=== PATIENT | male | born 1965 | race Caucasian/White ===

== ENCOUNTER → 2017-02-22 | Outpatient (CLI) | payer BC ==
[2016-05-29 14:14] VITALS: BP 132/80
[~2017-02-22] MED LIST: ASPI-482 PO; ATOR20TA58 PO; CHOL10003 PO; DIGO250T92 PO; DOCU50CA9 PO; LISI-334 PO; LISI10TA2 PO; NIAC10002 PO; NIAC500T PO; OMEG1CAP6 PO; OXYC-323 PO; WARF10TA6 PO; WARF3TAB54 PO; WARF6TAB PO
--- NOTE | 2017-02-22 15:48 | RAD ---
Indication follow-up examination. Grayscale color Doppler and spectral imaging was performed. Examination was targeted to the veins of the lower extremities. Note is made of a previous examination 05/28/2016 demonstrating findings most compatible with nonocclusive chronic appearing DVT throughout the right femoral vein. On the left common femoral, femoral and popliteal veins demonstrate normal flow compressibility and augmentation. No thrombus is seen. The visualized calf veins on the left appeared normal. On the right there are again seen findings compatible with chronic thrombus in the common femoral vein and in the distal aspect of the femoral vein and popliteal vein the knee. No new thrombus is seen. 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 No new thrombus on the right seen
== END | disposition home or self-care (01) ==
LOC: US 14:33
PROVIDERS: ATTEND Internal Medicine Critical Care Medicine
DX: I82.511 Chronic embolism and thrombosis of right femoral vein (principal); I82.531 Chronic embolism and thrombosis of right popliteal vein
CPT/HCPCS: 93970

== ENCOUNTER → 2017-04-02 | Outpatient (CLI) | payer BC ==
[2016-05-29 14:14] VITALS: BP 132/80
--- NOTE | 2017-04-02 15:05 | CARD ---
APPROVED REPORT EXAM: Two-dimensional and M-mode echocardiogram with Doppler and color Doppler. Other Information Quality : Average Rhythm : APC's INDICATION Cardiomyopathy 2D DIMENSIONS RVDd3.3 (2.9-3.5cm)Left Atrium(2D)4.0 (1.6-4.0cm) IVSd1.3 (0.7-1.1cm)Aortic Root(2D)3.2 (2.0-3.7cm) LVDd5.4 (3.9-5.9cm)LVOT Diameter2.6 (1.8-2.4cm) PWd1.3 (0.7-1.1cm)LVDs4.1 (2.5-4.0cm) FS (%) 24.0 %SV66.2 ml LVEF(%)47.3 (>50%) Aortic Valve AoV Peak Daniel.132.5cm/sAoV VTI31.4cm AO Peak GR.7.0mmHgLVOT Peak Daniel.92.7cm/s LVOT VTI 20.32cmAO Mean GR.4mmHg ENRIQUETA (VMAX)3.12mh0ASQ (VTI)3.49cm2 Mitral Valve MV E Hhpwpvpw77.6cm/sMV DECEL DQTE656cx MV A Anablfxz32.8cm/sE/A Ratio0.8 MV A Wydhahok511zm Tricuspid Valve TR P. Bvosjwoh930di/sRAP WJOQZFRT2nmFl TR Peak Gr.26qpRkILIN86qrQg LEFT VENTRICLE The left ventricle is normal size. There is borderline to mild concentric left ventricular hypertroph y. Left ventricle systolic function is mildly impaired. The Ejection Fraction is 40-45%. Severe hypok inesis in the basal to mid inferior wall. Remainder of the LV is mildly hypokinetic. Tissue Doppler i maging reveals mild left ventricular diastolic dysfunction. There is no ventricular septal defect vis ualized. RIGHT VENTRICLE The right ventricle is normal size. The right ventricular systolic function is normal. ATRIA The left atrium size is normal. The right atrium size is normal. The interatrial septum is intact wit h no evidence for an atrial septal defect or patent foramen ovale as noted on 2-D or Doppler imaging. AORTIC VALVE The aortic valve is normal in structure and function. The aortic valve is trileaflet. Doppler and Col or Flow revealed no significant aortic regurgitation. There is no significant aortic valvular stenosi s. MITRAL VALVE The mitral valve is normal in structure. There is no mitral valve stenosis. Doppler and Color Flow re vealed trace mitral regurgitation. TRICUSPID VALVE The tricuspid valve is normal in structure and function. Doppler and Color Flow revealed mild tricusp id regurgitation. The PA pressure was estimated at 26 mmHg. There is no tricuspid valve stenosis. PULMONIC VALVE The pulmonic valve is not well visualized. Doppler and Color Flow revealed no pulmonic valvular regur gitation. There is no pulmonic valvular stenosis. GREAT VESSELS The aortic root is normal in size. Pulmonary veins not well visualized. The IVC is normal in size and collapses >50% with inspiration. PERICARDIAL EFFUSION There is no evidence of significant pericardial effusion. Critical Notification Critical Value: No <Conclusion> Left ventricle systolic function is mildly impaired. The Ejection Fraction is 40-45%. Severe hypokinesis in the basal to mid inferior wall. Remainder of the LV is mildly hypokinetic. No significant changes compared to echo dated 05/2016.
== END | disposition home or self-care (01) ==
LOC: ECHO 12:51
PROVIDERS: ATTEND Internal Medicine Cardiovascular Disease
DX: I25.5 Ischemic cardiomyopathy (principal)
CPT/HCPCS: 93306

== ENCOUNTER → 2018-09-02 | Outpatient (CLI) | payer BC ==
[2016-05-29 14:14] VITALS: BP 132/80
[~2018-09-02] MED LIST changes: +WARF10TA40 PO; -WARF10TA6 PO
--- NOTE | 2018-09-02 10:38 | CARD ---
MR#: [id number] Date of Study: 09/02/2018 Ordering Physician: MANISH CALLE, Referring Physician: MANISH CALLE, Tech: Lora Majano RDCS APPROVED REPORT EXAM: Two-dimensional and M-mode echocardiogram with Doppler and color Doppler. Other Information Quality : GoodHR: 75bpm Rhythm : NSR INDICATION CAD 2D DIMENSIONS RVDd2.9 (2.9-3.5cm)Left Atrium(2D)4.4 (1.6-4.0cm) IVSd1.3 (0.7-1.1cm)Aortic Root(2D)3.6 (2.0-3.7cm) LVDd6.1 (3.9-5.9cm)LVOT Diameter2.4 (1.8-2.4cm) PWd1.0 (0.7-1.1cm)LVDs5.1 (2.5-4.0cm) FS (%) 16.9 %SV64.4 ml M-Mode DIMENSIONS Left Atrium(MM)4.50 (2.5-4.0cm)Aortic Root3.72 (2.2-3.7cm) Aortic Valve AoV Peak Daniel.128.1cm/sAoV VTI24.0cm AO Peak GR.6.6mmHgLVOT Peak Daniel.66.3cm/s LVOT VTI 18.03cmAO Mean GR.3mmHg ENRIQUETA (VMAX)2.70el6DRB (VTI)3.41cm2 Mitral Valve MV E Zuslcvxg64.4cm/sMV E Peak Gr.3mmHg MV DECEL DWQP131muOC A Vlckpkba58.8cm/s MV E Mean Gr.1mmHgE/A Ratio0.6 MV A Wksddsxa225mo Pulmonary Valve PV Peak Fgfcpuvo00.9cm/sPV Peak Grad.2mmHg Tricuspid Valve TR P. Zbczdezv962al/sRAP JEVSQHWG0qqQl TR Peak Gr.89rwQlKZJB57owRk LEFT VENTRICLE The Left Ventricle is mildly dilated. Proximal septal thickening is noted. Severe hypokinesis of basa l inferior and posterior aleman. The ejection fraction is estimated at 45%. Transmitral Doppler flow p attern is Grade I-abnormal relaxation pattern. RIGHT VENTRICLE The right ventricle is normal size. There is normal right ventricular wall thickness. The right ventr icular systolic function is normal. ATRIA The left atrium is mildly dilated. The right atrium is mildly dilated. The interatrial septum is inta ct with no evidence for an atrial septal defect or patent foramen ovale as noted on 2-D or Doppler im aging. AORTIC VALVE The aortic valve is trileaflet. The aortic valve is normal in structure and function. Doppler and Col or Flow revealed trace aortic regurgitation. There is no significant aortic valvular stenosis. MITRAL VALVE The mitral valve is normal in structure and function. There is no evidence of mitral valve prolapse. There is no mitral valve stenosis. Doppler and Color-flow revealed trace to mild mitral regurgitation . TRICUSPID VALVE The tricuspid valve is normal in structure and function. Doppler and Color Flow revealed trace tricus pid regurgitation. There is no tricuspid valve prolapse or vegetation. There is no tricuspid valve st enosis. PULMONIC VALVE The pulmonary valve is normal in structure and function. Doppler and Color Flow revealed mild pulmoni c valvular regurgitation. There is no pulmonic valvular stenosis. GREAT VESSELS The aortic root is normal in size. The ascending aorta is normal in size. PERICARDIAL EFFUSION There is no evidence of significant pericardial effusion. Critical Notification Critical Value: No <Conclusion> Severe hypokinesis of basal inferior and posterior aleman. The ejection fraction is estimated at 45%. Transmitral Doppler flow pattern is Grade I-abnormal relaxation pattern. Trace to mild mitral regurgitation. Trace tricuspid regurgitation. There is no evidence of significant pericardial effusion. Signed by : Manish Calle, Electronically Approved : 09/02/2018 10:37:56
== END | disposition home or self-care (01) ==
LOC: ECHO 09:43
PROVIDERS: ATTEND Internal Medicine Cardiovascular Disease
DX: I25.10 Atherosclerotic heart disease of native coronary artery without angina pectoris (principal)
CPT/HCPCS: 93306